=== PATIENT | male | born 1985 | race Caucasian/White ===

== ENCOUNTER 2024-03-14 20:17 | Emergency (ER) | payer OTHER ==
[~2024-03-14] VITALS: Ht 172.7 cm; Wt 74.8 kg
[2024-03-14 22:18] LABS: APPEARANCE,URINE CLEAR (CLEAR); BILIRUBIN,URINE NEGATIVE (NEGATIVE); BLOOD, URINE NEGATIVE Ery/uL (NEGATIVE); COLOR,URINE YELLOW (YELLOW); KETONES,URINE NEGATIVE (NEGATIVE); LEUKOCYTE ESTERASE ,URINE NEGATIVE (NEGATIVE); NITRITE, URINE NEGATIVE (NEGATIVE); PROTEIN,URINE NEGATIVE (NEGATIVE); UGLUCOSE NEGATIVE (NEGATIVE); UROBILINOGEN,URINE 0.2 EU/dL (0.2)
[2024-03-14] MEDS ORDERED: CYCL5TAB PO (23:00)
[2024-03-14] MEDS ORDERED: ACET-2605 PO (23:00)
[2024-03-14] MEDS ORDERED: IBUP-1955 PO (23:00)
[2024-03-14 23:19] VITALS: BP 136/79; TEMP 98.2; O2SAT 98
== END 2024-03-14 23:20 | disposition home or self-care (01) ==
LOC: ER 20:22
DX: M54.59 Other low back pain (principal); Z60.2 Problems related to living alone